=== PATIENT | female | born 1985 | race Caucasian/White ===

== ENCOUNTER 2016-12-02 15:28 | Observation (INO) | payer SELFPAY ==
[~2016-12-02] VITALS: Ht 165.1 cm; Wt 81.6 kg
[2016-12-02] MEDS ORDERED: SODIUM CHLORIDE 0.9% 1,000 ML IV ONE (16:45)
[2016-12-02 16:49] LABS: Basophils # (auto) 0.1 uL; Basophils % (auto) 0.8 % (0.0-2.0); Eosinophils # (auto) 0 uL; Eosinophils % (auto) 0.1 % (0.0-7.0); Hematocrit 45.9 % (36.0-46.0); Hemoglobin 15.4 g/dL (12.2-16.2); Lymphocytes # (auto) 4.8 uL; Lymphocytes % (auto) 48.2 % (10.0-50.0); Mean Corpuscular Hemoglobin 30.8 pg (28.0-32.0); Mean Corpuscular Hgb Conc. 33.6 g/dL (32.0-36.0); Mean Corpuscular Volume 91.5 fL (80.0-100.0); Mean Platelet Volume 8.3 fL (7.4-10.4); Monocytes # (auto) 0.3 uL; Monocytes % (auto) 2.7 % (0.0-12.0); Neutrophils # (auto) 4.8 uL; Neutrophils % (auto) 48.2 % (37.0-80.0); Platelet Count (auto) 303 10^3/uL (140-450); Red Cell Distribution Width 13.5 % (11.6-16.0); White Blood Cell 9.9 10^3/uL (4.4-10.8)
[2016-12-02 17:16] LABS: Albumin 4.9 g/dL (3.4-5.0); BUN/Creatinine Ratio 8.7; Bilirubin, Total 0.8 mg/dL (0.2-1.0); Calcium 8.9 mg/dL (8.5-10.1); Potassium 3.5 mmol/L (3.5-5.1); Total Protein 9.6 g/dL (6.4-8.2)
[2016-12-02 17:40] LABS: Urine Bilirubin Negative (Negative); Urine Blood Negative /uL (Negative); Urine Color Yellow (Yellow); Urine Glucose Normal (Normal); Urine Ketone Negative (Negative); Urine Nitrite Negative (Negative); Urine RBC <1 /hpf (0 - 4); Urine Squamous Epithelial Cell FEW /hpf (<5); Urine Urobilinogen Normal (Negative); Urine pH 5.5 (5.0-8.0)
[2016-12-02] MEDS ORDERED: ONDANSETRON ODT 4 MG TAB PO ONE ×2 (22:27→22:45)
[2016-12-03] MEDS ORDERED: SODIUM CHLORIDE 0.9% 1,000 ML IV ONE (07:01)
[2016-12-03] MEDS ORDERED: PANTOPRAZOLE 40 MG TAB PO ONE (07:15)
[2016-12-03 09:36] VITALS: BP 119/69
[2016-12-03] MEDS ORDERED: THIAMINE INJ 100 MG, MULTIPLE VITAMIN 10 ML, FOLIC ACID 1 MG, MAGNESIUM SULF SDV 50% 8 ... IV SCH ×5 (12:00)
== END 2016-12-03 10:04 | disposition home or self-care (01) | DRG 897 ==
LOC: EDBD 15:28 → EDUNIT# 15:28 → ER 15:42 → OVERFLOW 15:43 → ER 12-03 10:04
PROVIDERS: ADMIT Emergency Medicine; ATTEND Emergency Medicine
DX: F10.129 Alcohol abuse with intoxication, unspecified (principal); R40.4 Transient alteration of awareness
CPT/HCPCS: 36415; 80053; 80307; 80320; 81001; 81025; 83735; 85025; 96360; 96361; 99285; G0378; J7030; Q0162

== ENCOUNTER 2017-01-05 09:38 | Emergency (ER) | payer MEDICAID ==
[~2017-01-05] VITALS: Ht 165.1 cm; Wt 81.6 kg
[2017-01-05 11:14] LABS: Basophils # (auto) 0.1 uL; Basophils % (auto) 0.7 % (0.0-2.0); Eosinophils # (auto) 0 uL; Eosinophils % (auto) 0.4 % (0.0-7.0); Hemoglobin 15.1 g/dL (12.2-16.2); Lymphocytes # (auto) 3.1 uL; Lymphocytes % (auto) 33.4 % (10.0-50.0); Mean Corpuscular Hemoglobin 31.1 pg (28.0-32.0); Mean Corpuscular Hgb Conc. 34.2 g/dL (32.0-36.0); Mean Corpuscular Volume 90.8 fL (80.0-100.0); Mean Platelet Volume 8.3 fL (7.4-10.4); Monocytes # (auto) 0.3 uL; Neutrophils # (auto) 5.7 uL; Neutrophils % (auto) 62.5 % (37.0-80.0); Platelet Count (auto) 239 10^3/uL (140-450); Red Cell Distribution Width 13.4 % (11.6-16.0); White Blood Cell 9.2 10^3/uL (4.4-10.8)
[2017-01-05 11:36] LABS: Urine RBC None Seen /hpf (0 - 4)
[2017-01-05] MEDS ORDERED: SODIUM CHLORIDE 0.9% 3,000 ML IV ONE (11:45)
[2017-01-05 11:52] LABS: Albumin 4.9 g/dL (3.4-5.0); BUN/Creatinine Ratio 11.8; Bilirubin, Total 1.2 mg/dL (0.2-1.0); Calcium 8.6 mg/dL (8.5-10.1); Potassium 3.4 mmol/L (3.5-5.1); Total Protein 8.7 g/dL (6.4-8.2)
[2017-01-05 11:59] LABS: Urine Bilirubin Negative (Negative); Urine Color Yellow (Yellow); Urine Glucose Normal (Normal); Urine Ketone TRACE (Negative); Urine Mucus FEW (None Seen); Urine Nitrite Negative (Negative); Urine Squamous Epithelial Cell FEW /hpf (<5); Urine Urobilinogen Normal (Negative)
[2017-01-05 12:00] LABS: Urine Blood 1+ /uL (Negative)
[2017-01-05 13:00] VITALS: BP 135/52
== END 2017-01-05 15:06 | disposition home or self-care (01) ==
LOC: ER 09:38
DX: F10.10 Alcohol abuse, uncomplicated (principal); F12.10 Cannabis abuse, uncomplicated; Z91.410 Personal history of adult physical and sexual abuse; R51 Headache; Y04.8XXA Assault by other bodily force, initial encounter; Y93.89 Activity, other specified; Y99.8 Other external cause status; Y92.89 Other specified places as the place of occurrence of the external cause
CPT/HCPCS: 36415; 70450; 80053; 80307; 80320; 81001; 84702; 85025; 96360; 96361; 99285; J7030